=== PATIENT | female | born 1980 ===

== ENCOUNTER 2019-02-01 10:01 | Emergency (ER) | payer OTHER ==
[2019-02-01 10:01] VITALS: BMI 32.2
[2019-02-01] MEDS ORDERED: Sodium Chloride 0.9% 1,000 ML IV ONE (10:40)
[2019-02-01 10:54] LABS: BASO # 0.1 K/uL (0.0-0.2); BASO % 0.5 % (0.0-2.0); HEMOGLOBIN 12.1 g/dL (11.0-16.0); LYMPH # 1.1 K/uL (1.0-4.3); LYMPH % 6.5 % (20.0-40.0); MEAN CORPUSCULAR HEMOGLOBIN 25.1 pg (27.0-31.0); MEAN CORPUSCULAR HGB CONC 31.9 g/dL (33.0-37.0); MEAN PLATELET VOLUME 7.6 fL (7.2-11.7); MONO # 1.7 K/uL (0.0-0.8); MONO % 10.3 % (0.0-10.0); NEUT # 13.4 K/uL (1.8-7.0); NEUT % 82.7 % (50.0-75.0); PLATELET COUNT 340 K/uL (130-400); RBC 4.83 Mil/uL (3.80-5.20); RED CELL DISTRIBUTION WIDTH 15.5 % (11.5-14.5)
[2019-02-01] MEDS ORDERED: Sodium Chloride 0.9% 1,000 ML ONE (10:57)
[2019-02-01 11:03] LABS: MEAN CELL VOLUME 78.6 fL (81.0-99.0); WHITE BLOOD COUNT 16.2 K/uL (4.8-10.8)
[2019-02-01 11:07] LABS: ALB/GLOB RATIO 1.2 (1.0-2.1); ALBUMIN 4.3 g/dL (3.5-5.0); ALT/SGPT 8 U/L (9-52); AST/SGOT 22 U/L (14-36); BLOOD UREA NITROGEN 8 mg/dL (7-17); GFR NON-AFRICAN AMERICAN > 60; LIPASE 27 U/L (23-300)
[2019-02-01 11:14] LABS: SQUAMOUS EPITHIAL 12 /hpf (0-5); URINE BILIRUBIN NEGATIVE (NEGATIVE); URINE BLOOD 2+ (NEGATIVE); URINE CLARITY Hazy (Clear); URINE COLOR Yellow (YELLOW); URINE GLUCOSE (UA) NORMAL (Normal); URINE LEUKOCYTE ESTERASE 2+ Leu/uL (Negative); URINE PROTEIN 1+ mg/dL (NEGATIVE); URINE UROBILINOGEN NORMAL mg/dL (0.2-1.0)
[2019-02-01 11:32] LABS: BANDS 2 % (0-2); LYMPHOCYTE 11 % (20-40); MONOCYTE 5 % (0-10); NEUTROPHIL 82 % (50-75); TOTAL CELLS COUNTED 100
[2019-02-01 11:33] LABS: ANISOCYTOSIS SLIGHT; PLATELET ESTIMATE NORMAL (NORMAL)
--- NOTE | 2019-02-01 11:51 | C.PDOC ---
History Of Present Illness 38 years old female with PMHx of renal colic, ovarian cysts, pituitary tumor, appendectomy, and cholecystectomy presents to ED for complaints of constant right flank pain associated with dysuria and fever that began 3 days ago. Consuelo ent reports she took Tylenol last night and today morning with no relief. Patient also reports last [employer] visit was in October 2018. Patient states LMP was 2/20 and she usually has "complicated periods due to cysts." Denies nausea, vomiting, or any other complaints. Time Seen by Provider: 02/01/19 10:15 Chief Complaint (Nursing): Abdominal Pain History Per: Patient History/Exam Limitations: no limitations Onset/Duration Of Symptoms: Hrs Current Symptoms Are (Timing): Still Present Radiation Of Pain To:: None Quality Of Discomfort: "Pain" Associated Symptoms: Fever. denies: Chills, Nausea, Vomiting, Diarrhea Exacerbating Factors: None Alleviating Factors: None Last Bowel Movement: Today Recent travel outside of the [place]: No Abnormal Vaginal Bleeding: No Past Medical History Reviewed: Historical Data, Nursing Documentation, Vital Signs Vital Signs: Last Vital Signs Temp 100.7 F H 02/01/19 10:04 Pulse 119 H 02/01/19 10:04 Resp 21 02/01/19 10:04 BP 133/82 02/01/19 10:04 Pulse Ox 100 02/01/19 10:04 - Medical History PMH: HTN Denies: Chronic Kidney Disease Surgical History: Appendectomy (age 18), Cholecystectomy (02/2016) - [facility] Procedures RESECTION OF GALLBLADDER, PERCUTANEOUS ENDOSCOPIC APPROACH (03/09/16) Family History: States: No Known Family Hx - Social History Hx Alcohol Use: No Hx Substance Use: No - Immunization History Hx Tetanus Toxoid Vaccination: No Hx Influenza Vaccination: No Hx Pneumococcal Vaccination: No Review Of Systems Except As Marked, All Systems Reviewed And Found Negative. Constitutional: Positive for: Fever. Negative for: Chills Gastrointestinal: Positive for: Other (Right Flank Pain ). Negative for: Nausea, Vomiting, Diarrhea Genitourinary: Positive for: Dysuria. Negative for: Hematuria, Vaginal Discharge, Vaginal Bleeding Skin: Negative for: Rash Neurological: Negative for: Weakness, Numbness Physical Exam - Physical Exam Appears: Non-toxic, No Acute Distress Skin: Normal Color, Warm, Dry, No Rash Head: Atraumatic, Normacephalic Eye(s): bilateral: Normal Inspection, PERRL, EOMI, Other (Conjunctiva clear) Oral Mucosa: Moist Neck: Normal ROM, Supple Chest: Symmetrical, No Tenderness Cardiovascular: Rhythm Regular, Other ( Normal S1, S2) Respiratory: Normal Breath Sounds, No Rales, No Rhonchi, No Wheezing, Other (Good air movement, Lungs CTA bilaterally) Gastrointestinal/Abdominal: Bowel Sounds (Active ), Soft, Tenderness (Mild to right lower quadrant and suprapubic region ), No Guarding, No Rebound Back: CVA Tenderness (Mild of right CVA ) Extremity: Normal ROM Extremity: Bilateral: Atraumatic, Normal Color And Temperature, Normal ROM, Other (no cyanosis or edema) Pulses: Left Radial: Normal, Right Radial: Normal Neurological/Psych: Oriented x3, Normal Speech, Normal Motor (5/5 muscle strength), Normal Sensation, Normal Reflexes, Other (GCS 15, CN 2-12 intact) Gait: Steady ED Course And Treatment - Laboratory Results Result Diagrams: 02/01/19 10:50 02/01/19 10:50 Lab Results: Total Bilirubin 0.8 mg/dL (0.2-1.3) 02/01/19 10:50 AST 22 U/L (14-36) 02/01/19 10:50 ALT 8 U/L (9-52) L D 02/01/19 10:50 Alkaline Phosphatase 136 U/L (38-126) H 02/01/19 10:50 Total Protein 7.9 g/dL (6.3-8.3) 02/01/19 10:50 Albumin 4.3 g/dL (3.5-5.0) 02/01/19 10:50 Globulin 3.6 gm/dL (2.2-3.9) 02/01/19 10:50 Albumin/Globulin Ratio 1.2 (1.0-2.1) 02/01/19 10:50 Lipase 27 U/L (23-300) 02/01/19 10:50 Urine Color Yellow (YELLOW) 02/01/19 10:50 Urine Clarity Hazy (Clear) 02/01/19 10:50 Urine pH 7.0 (5.0-8.0) 02/01/19 10:50 Ur Specific Ewing 1.011 (1.003-1.030) 02/01/19 10:50 Urine Protein 1+ mg/dL (NEGATIVE) H 02/01/19 10:50 Urine Glucose (UA) Normal mg/dL (Normal) 02/01/19 10:50 Urine Ketones Trace mg/dL (NEGATIVE) 02/01/19 10:50 Urine Blood 2+ (NEGATIVE) H 02/01/19 10:50 Urine Nitrate Negative (NEGATIVE) 02/01/19 10:50 Urine Bilirubin Negative (NEGATIVE) 02/01/19 10:50 Urine Urobilinogen Normal mg/dL (0.2-1.0) 02/01/19 10:50 Ur Leukocyte Esterase 2+ Zack/uL (Negative) H 02/01/19 10:50 Urine WBC (Auto) 167 /hpf (0-5) H 02/01/19 10:50 Urine RBC (Auto) 50 /hpf (0-3) H 02/01/19 10:50 Ur Squamous Epith Cells 12 /hpf (0-5) H 02/01/19 10:50 O2 Sat by Pulse Oximetry: 100 (RA) Pulse Ox Interpretation: Normal - CT Scan/US Abdomen/Pelvis CT Other Rad Studies (CT/US): Read By Radiologist, Radiology Report Reviewed CT/US Interpretation: Date of service: 02/01/2019. PROCEDURE: CT Abdomen and Pelvis without intravenous contrast. HISTORY: right cva tenderness. COMPARISON: Comparison is made to the previous study dated 12/20/2016. TECHNIQUE: Axial and reformatted coronal and sagittal CT images of the abdomen and pelvis were obtained. Contrast dose: 0. Radiation dose: Total exam DLP = 664.44 mGy-cm. This CT exam was performed using one or more of the following dose reduction techniques: Automated exposure control, adjustment of the mA and/or kV according to patient size, and/or use of iterative reconstruction technique. FINDINGS: LOWER THORAX: Unremarkable. LIVER: Mild hepatomegaly is noted.. No gross lesion or ductal dilatation. GALLBLADDER AND BILE DUCTS: Status post cholecystectomy. PANCREAS: Unremarkable. No gross lesion or ductal dilatation. SPLEEN: Unremarkable. ADRENALS: Unremarkable. No mass. KIDNEYS AND URETERS: Mild right hydronephrosis and hydroureter without evidence of obstructing right ureter stone. There is 3.5 millimeter nonobstructing stone at the midpole of the right kidney. There are 2 nonobstructing renal calculi at the mid and lower portion of the right kidney measures each approximately 2 millimeter. There is less than 2 millimeter calculus at the midpole of the left kidney. No evidence of left hydronephrosis. VASCULATURE: Unremarkable. No aortic aneurysm. No aortic atherosclerotic calcification or mural plaque present. BOWEL: Unremarkable. No obstruction. No gross mural thickening. APPENDIX: No evidence of appendicitis. PERITONEUM: Unremarkable. No free fluid. No free air. LYMPH NODES: Unremarkable. No enlarged lymph nodes. BLADDER: [id number] urinary bladder wall thickening. REPRODUCTIVE: Unremarkable. BONES: No acute fracture. OTHER FINDINGS: None. IMPRESSION: Mild right hydronephrosis and hydroureter without evidence of obstructing ureter stone. Mild right perinephric stranding noted. Bilateral nonobstructing renal calculi larger and more on the right. No evidence of other acute pathology P Medical Decision Making Medical Decision Making: Plan: * IV Fluids * Toradol * Tylenol * Blood work * Urine Culture * Urinalysis * CT Abdomen & Pelvis 13:40: Reassessed patient. Pain gone after Toradol. Findings of CT explained. Advised to follow up at clinic and patient is in agreement. Nurse provided patient a urine strainer. Patient betty denies any complaints. Patient is stable for discharge and will be discharged. Return if symptoms persist or worsen. Disposition Counseled Patient/Family Regarding: Studies Performed, Diagnosis, Need For Followup - Disposition Referrals: [facility] [Outside] Disposition: HOME/ ROUTINE Disposition Time: 13:39 Additional Instructions: OZZIE DEVLIN, thank you for letting us take care of you today. Your provider was Yoselin Martin MD and you were treated for ABD PAIN. The emergency medical care you received today was directed at your acute symptoms. If you were prescribed any medication, please fill it and take as directed. It may take several days for your symptoms to resolve. Return to the Emergency Department if your symptoms worsen, do not improve, or if you have any other problems. Tiene que hacer lashonda pelon con avalos doctor en 1-2 shelby. Bring any paperwork you were given at discharge with you along with any me dications you are taking to your follow up visit. Our treatment cannot replace ongoing medical care by a primary care provider outside of the emergency department. Thank you for allowing the [facility] team to be part of your care today. Prescriptions: Cephalexin [cephalexin] 250 mg PO QID #28 cap Naproxen [Naprosyn] 500 mg PO BID PRN #30 tablet PRN Reason: Pain, Moderate (4-7) Instructions: Urinary Tract Infection, Adult (DC), Renal Colic (DC) Forms: Gen Discharge Inst Haitian, [facility] (Haitian) Print Language: ARMENIAN - POA Present On Arrival: None - Clinical Impression Clinical Impression: Renal colic, UTI (urinary tract infection) - Scribe Statement The provider has reviewed the documentation as recorded by the Scribluz Patel All medical record entries made by the Josephibe were at my direction and personally dictated by me. I have reviewed the chart and agree that the record accurately reflects my personal performance of the history, physical exam, medical decision making, and the department course for this patient. I have also personally directed, reviewed, and agree with the discharge instructions and disposition.lynsey
--- NOTE | 2019-02-01 12:14 | CT ---
Date of service: 02/01/2019 PROCEDURE: CT Abdomen and Pelvis without intravenous contrast HISTORY: right cva tenderness COMPARISON: Comparison is made to the previous study dated 12/20/2016 TECHNIQUE: Axial and reformatted coronal and sagittal CT images of the abdomen and pelvis were obtained. Contrast dose: 0 Radiation dose: Total exam DLP = 664.44 mGy-cm. This CT exam was performed using one or more of the following dose reduction techniques: Automated exposure control, adjustment of the mA and/or kV according to patient size, and/or use of iterative reconstruction technique. FINDINGS: LOWER THORAX: Unremarkable. LIVER: Mild hepatomegaly is noted.. No gross lesion or ductal dilatation. GALLBLADDER AND BILE DUCTS: Status post cholecystectomy PANCREAS: Unremarkable. No gross lesion or ductal dilatation. SPLEEN: Unremarkable. ADRENALS: Unremarkable. No mass. KIDNEYS AND URETERS: Mild right hydronephrosis and hydroureter without evidence of obstructing right ureter stone. There is 3.5 millimeter nonobstructing stone at the midpole of the right kidney. There are 2 nonobstructing renal calculi at the mid and lower portion of the right kidney measures each approximately 2 millimeter. There is less than 2 millimeter calculus at the midpole of the left kidney. No evidence of left hydronephrosis. VASCULATURE: Unremarkable. No aortic aneurysm. No aortic atherosclerotic calcification or mural plaque present. BOWEL: Unremarkable. No obstruction. No gross mural thickening. APPENDIX: No evidence of appendicitis. PERITONEUM: Unremarkable. No free fluid. No free air. LYMPH NODES: Unremarkable. No enlarged lymph nodes. BLADDER: [id number] urinary bladder wall thickening. REPRODUCTIVE: Unremarkable. BONES: No acute fracture. OTHER FINDINGS: None. IMPRESSION: Mild right hydronephrosis and hydroureter without evidence of obstructing ureter stone. Mild right perinephric stranding noted. Bilateral nonobstructing renal calculi larger and more on the right. No evidence of other acute pathology P
[2019-02-01 12:18] VITALS: BP 102/67; PULSE 82; RESP 20; TEMP 98.2
[2019-02-01 12:59] VITALS: O2SAT 100
== END 2019-02-01 13:58 | disposition home or self-care (01) ==
LOC: C.ER 10:01
DX: N13.2 Hydronephrosis with renal and ureteral calculous obstruction (principal); N39.0 Urinary tract infection, site not specified
CPT/HCPCS: 74176; 80053; 81001; 81025; 83690; 85025; 87086; 87181; 96361; 96374; 96375; 99285; J0696; J1885; J7030

== ENCOUNTER 2019-02-27 09:38 | Outpatient (CLI) | payer OTHER | END 2019-02-27 09:39 | disposition home or self-care (01) | LOC: C.LAB 09:38 | DX: E55.0 Rickets, active (principal); E23.6 Other disorders of pituitary gland; E04.1 Nontoxic single thyroid nodule ==